=== PATIENT | male | born 1945 | race Hispanic/Latino ===

== ENCOUNTER 2017-02-10 17:56 | Emergency (ER) | payer MEDICARE ==
--- NOTE | 2017-02-10 21:06 | RAD ---
TWO VIEWS CHEST 02/10/17 HISTORY: Cough. PA and lateral views of the chest is obtained. Surgical changes seen in the distal right clavicle. Ectasia of the aorta is seen. The lungs are well aerated. No evidence of acute intrathoracic abnormal ity is seen. No evidence of effusions, pneumonia or pneumothorax seen. IMPRESSION: Unremarkable two views chest. POS: [facility]
== END 2017-02-10 19:32 | disposition home or self-care (01) ==
LOC: ERS 17:56
DX: J11.1 Influenza due to unidentified influenza virus with other respiratory manifestations (principal); E03.9 Hypothyroidism, unspecified; E78.5 Hyperlipidemia, unspecified
CPT/HCPCS: 71020